=== PATIENT | male | born 1970 | race Caucasian/White ===

== ENCOUNTER 2017-11-05 12:46 | Emergency (ER) | payer OTHER, MEDICARE ==
[2017-11-05 13:08] VITALS: BP 138/80; PULSE 98; RESP 18; TEMP 97.9
--- NOTE | 2017-11-05 13:42 | ED ---
Upper Extremity HPI - General Chief Complaint: Extremity Injury, Upper Stated Complaint: LEFT SHOULDER INJURY Time Seen by Provider: 11/05/17 12:54 Source: patient, RN notes reviewed, old records reviewed Mode of arrival: ambulatory Limitations: no limitations - History of Present Illness Initial Comments: Patient is a 46-year-old male presents emergency Department a chief complaint of left shoulder pain. It's worse with range of motion. It started 5-6 days ago. He states that it occurred after he was doing heavy yard work and raking. Patient reports that he's noticed that his arm seems to be somewhat swollen. His pain is worse with any range of motion of the shoulder. Denies any wrist hand or elbow pain. He has a history of arthritis.Patient denies any recent fever, chills, shortness of breath, chest pain, back pain, abdominal pain, nausea vomiting, numbness or tingling, dysuria or hematuria, constipation or diarrhea, headaches or visual changes, or any other current symptoms - Related Data Home Medications Medication Instructions Recorded Confirmed clonazePAM [KlonoPIN] 1 mg PO BID 09/19/15 09/19/15 Aspirin 1 tab PO DAILY 11/05/17 11/05/17 Atorvastatin [Lipitor] 20 mg PO DAILY 11/05/17 11/05/17 Lisinopril-Hctz 10-12.5 mg 1 tab PO DAILY 11/05/17 11/05/17 [Zestoretic 10-12.5] Pantoprazole Sodium [Protonix] 40 mg PO DAILY 11/05/17 11/05/17 Previous Rx's Medication Instructions Recorded Ibuprofen [Motrin] 600 mg PO Q6HR PRN #15 tab 11/05/17 traMADol HCL [Ultram] 50 mg PO Q6HR PRN 3 Days #12 tab 11/05/17 Allergies Allergy/AdvReac Type Severity Reaction Status Date / Time Penicillins Allergy Rash/Hives Verified 11/05/17 13:07 Review of Systems ROS Statement: Those systems with pertinent positive or pertinent negative responses have been documented in the HPI. ROS Other: All systems not noted in ROS Statement are negative. Past Medical History Past Medical History: GERD/Reflux, Hypertension Additional Past Medical History / Comment(s): diverticulitis, ulcerative colitis History of Any Multi-Drug Resistant Organisms: None Reported Past Surgical History: Hernia Repair Additional Past Surgical History / Comment(s): rhinoplasty, colostomy Past Psychological History: PTSD Smoking Status: Current every day smoker Past Alcohol Use History: None Reported - Past Family History Mother Family Medical History: Vascular Disorder General Exam - General Exam Comments Initial Comments: 46-year-old male. Alert. No acute distress. Limitations: no limitations General appearance: alert, in no apparent distress Head exam: Present: atraumatic, normocephalic, normal inspection Eye exam: Present: normal appearance, PERRL, EOMI. Absent: scleral icterus, conjunctival injection, periorbital swelling ENT exam: Present: normal exam, mucous membranes moist Neck exam: Present: normal inspection. Absent: tenderness, meningismus, lymphadenopathy Respiratory exam: Present: normal lung sounds bilaterally. Absent: respiratory distress, wheezes, rales, rhonchi, stridor Cardiovascular Exam: Present: regular rate, normal rhythm, normal heart sounds. Absent: systolic murmur, diastolic murmur, rubs, gallop, clicks Left Shoulder Exam: Present: tenderness (Over anterior aspect of the shoulder.), swelling. Absent: normal inspection, full ROM, laceration, ecchymosis, deformity, crepitus, dislocation Upper Arm exam: Present: normal inspection, full ROM Elbow exam: Present: normal inspection, full ROM Forearm Wrist exam: Present: normal inspection, full ROM Back exam: Present: normal inspection Neurological exam: Present: alert, oriented X3, CN II-XII intact Psychiatric exam: Present: normal affect, normal mood Course Vital Signs 11/05/17 13:05 Temperature 97.9 F Pulse Rate 98 Respiratory 18 Rate Blood Pressure 138/80 O2 Sat by Pulse 97 Oximetry Medical Decision Making - Medical Decision Making Patient is a 46-year-old male presents emergency Department a chief complaint of left shoulder pain. It's worse with range of motion. It started 5-6 days ago. He states that it occurred after he was doing heavy yard work and raking. Patient reports that he's noticed that his arm seems to be somewhat swollen. Discussed that patient's symptoms are likely related to rotator cuff injury. He does have pain with range of motion of the shoulder. Limited abduction. Patient x-rays show evidence of arthritis. No acute fracture. Patient reported these results. Will be placed in a sling. Discussed possibility for shoulder syndrome and to practice range of motion. Will be discharged with anti -inflammatory medicine and pain medication. We'll be following up with orthopedic. - Radiology Data Radiology results: report reviewed No acute fracture dislocation of the left shoulder. Mild left acromioclavicular arthropathy. Disposition Clinical Impression: Left shoulder tendinitis Disposition: HOME SELF-CARE Condition: Good Instructions: Rotator Cuff Injury (ED) Additional Instructions: Patient advised to follow-up with strategic sourcing specialist. Return to the emergency department if any alarming signs or symptoms occur. Prescriptions: Ibuprofen [Motrin] 600 mg PO Q6HR PRN #15 tab PRN Reason: Pain traMADol HCL [Ultram] 50 mg PO Q6HR PRN 3 Days #12 tab PRN Reason: Pain Is patient prescribed a controlled substance at d/c from ED?: No If prescribed controlled substance>3 days was MAPS reviewed?: No When asked, does pt state using other controlled substances?: No Referrals: Joni Davis MD [Primary Care Provider] - 1-2 days Chris Menendez DO [Doctor of Osteopathic Medicine] - 1-2 days Time of Disposition: 14:17
--- NOTE | 2017-11-05 14:05 | XR ---
EXAMINATION TYPE: XR shoulder complete LT DATE OF EXAM: 11/05/2017 CLINICAL HISTORY: Left shoulder pain and swelling without known injury TECHNIQUE: Three views of the left shoulder are obtained. COMPARISON: None. FINDINGS: There is no acute fracture/dislocation evident in the left shoulder. There is mild left ac romioclavicular arthropathy demonstrated as small marginal osteophytes. The visualized ribs are inta ct and unremarkable. IMPRESSION: There is no acute fracture or dislocation in the left shoulder. Mild left acromio clavic ular arthropathy.
== END 2017-11-05 14:34 | disposition home or self-care (01) ==
LOC: EC 12:46
DX: M77.9 Enthesopathy, unspecified (principal); M19.90 Unspecified osteoarthritis, unspecified site; K21.9 Gastro-esophageal reflux disease without esophagitis; I10 Essential (primary) hypertension; F43.10 Post-traumatic stress disorder, unspecified; F17.200 Nicotine dependence, unspecified, uncomplicated; Z79.82 Long term (current) use of aspirin; Z79.899 Other long term (current) drug therapy; Z88.0 Allergy status to penicillin; X50.9XXA Other and unspecified overexertion or strenuous movements or postures, initial encounter; Y93.H1 Activity, digging, shoveling and raking
CPT/HCPCS: 99284

== ENCOUNTER 2018-07-11 00:07 | Inpatient (IN) | payer MEDICARE, OTHER ==
[2018-07-11] MEDS ORDERED: HYDROmorphone 1 MG/ML 1 ML SYRINGE IVP STA (00:38)
[2018-07-11] MEDS ORDERED: SODIUM CHLORIDE 0.9% 1,000 ML IV STA (00:38)
[2018-07-11] MEDS ORDERED: ONDANSETRON 4 MG/2 ML VIAL IVP STA (00:38)
--- NOTE | 2018-07-11 00:44 | ED ---
Abdominal Pain HPI - General Chief Complaint: Abdominal Pain Stated Complaint: Abdominal Pain Time Seen by Provider: 07/11/18 00:14 Source: patient Mode of arrival: ambulatory Limitations: no limitations - History of Present Illness Initial Comments: 47-year-old male patient presents to the emergency department today for evaluation of midepigastric abdominal pain and suprapubic abdominal pain. Patient states that the pain started last evening. States it is quite severe. Patient states the pain waxes and wanes. Patient states he has been nauseated but has not vomited. States he had a very small bowel movement this morning but no other bowel movements today. States he has been chilled but denies any fevers. He denies any radiation of the pain into his back. He does have history of small bowel obstruction as well as diverticulitis. Patient has had a history of colostomy with reversal and cholecystectomy. Patient's surgeon is Dr. Zapata at [facility]. Denies any difficulty with urination. Patient denies any recent rash, shortness breath, chest pain, numbness, tingling , dizziness, weakness, hematuria, dysuria, urinary urgency, urinary frequency, headache, visual changes, or any other complaints. - Related Data Home Medications Medication Instructions Recorded Confirmed clonazePAM [KlonoPIN] 1 mg PO BID 09/19/15 09/19/15 Aspirin 1 tab PO DAILY 11/05/17 11/05/17 Atorvastatin [Lipitor] 20 mg PO DAILY 11/05/17 11/05/17 Lisinopril-Hctz 10-12.5 mg 1 tab PO DAILY 11/05/17 11/05/17 [Zestoretic 10-12.5] Pantoprazole Sodium [Protonix] 40 mg PO DAILY 11/05/17 11/05/17 Previous Rx's Medication Instructions Recorded Ibuprofen [Motrin] 600 mg PO Q6HR PRN #15 tab 11/05/17 traMADol HCL [Ultram] 50 mg PO Q6HR PRN 3 Days #12 tab 11/05/17 Allergies Allergy/AdvReac Type Severity Reaction Status Date / Time Penicillins Allergy Rash/Hives Verified 07/11/18 00:13 Review of Systems ROS Statement: Those systems with pertinent positive or pertinent negative responses have been documented in the HPI. ROS Other: All systems not noted in ROS Statement are negative. Past Medical History Past Medical History: GERD/Reflux, Hypertension Additional Past Medical History / Comment(s): diverticulitis, ulcerative colitis History of Any Multi-Drug Resistant Organisms: None Reported Past Surgical History: Bowel Resection, Hernia Repair Additional Past Surgical History / Comment(s): rhinoplasty, colostomy Past Psychological History: PTSD Smoking Status: Former smoker Past Alcohol Use History: None Reported Past Drug Use History: None Reported - Past Family History Mother Family Medical History: Vascular Disorder General Exam Limitations: no limitations General appearance: alert, in no apparent distress, other (This is a well- developed, well-nourished adult male patient in mild distress related to pain. Vital signs upon presentation are temperature 98.6F, pulse 101, respirations 22 , blood pressure 135/85, pulse ox 98% on room air.) Eye exam: Present: normal appearance, PERRL, EOMI. Absent: scleral icterus, conjunctival injection, periorbital swelling ENT exam: Present: normal exam, normal oropharynx, mucous membranes moist Respiratory exam: Present: normal lung sounds bilaterally. Absent: respiratory distress, wheezes, rales, rhonchi, stridor Cardiovascular Exam: Present: regular rate, normal rhythm, normal heart sounds. Absent: systolic murmur, diastolic murmur, rubs, gallop, clicks GI/Abdominal exam: Present: soft, tenderness (Suprapubic, left lower quadrant tenderness. Midepigastric tenderness.), normal bowel sounds. Absent: distended , guarding, rebound, rigid Neurological exam: Present: alert, oriented X3, CN II-XII intact Psychiatric exam: Present: normal affect, normal mood Skin exam: Present: warm, dry, intact, normal color. Absent: rash Course Vital Signs 07/11/18 07/11/18 00:09 01:37 Temperature 98.6 F Pulse Rate 101 H 69 Respiratory 22 16 Rate Blood Pressure 135/85 126/82 O2 Sat by Pulse 98 99 Oximetry Medical Decision Making - Medical Decision Making 47-year-old male patient presents the emergency department today for evaluation of midepigastric and superficial abdominal pain. Physical examination did reveal abdominal distention and tenderness especially over the midepigastric region, suprapubic region, and left lower quadrant. Labs reviewed and did reveal elevated white blood cell count of 14.2, neutrophil count at 11.5. CT abdomen and pelvis was obtained and did show a distal small bowel obstruction. We will insert NG tube. Pain management will be provided. We'll consult Dr. Rock. - Lab Data Result diagrams: 07/11/18 00:31 07/11/18 00:31 Lab Results 07/11/18 07/11/18 07/11/18 Range/Units 00:31 00:31 00:31 WBC 14.2 H (3.8-10.6) k/uL RBC 5.26 (4.30-5.90) m/uL Hgb 15.4 (13.0-17.5) gm/dL Hct 46.7 (39.0-53.0) % MCV 88.8 (80.0-100.0) fL MCH 29.3 (25.0-35.0) pg MCHC 33.0 (31.0-37.0) g/dL RDW 13.3 (11.5-15.5) % Plt Count 324 (150-450) k/uL Neutrophils % 81 % Lymphocytes % 13 % Monocytes % 3 % Eosinophils % 1 % Basophils % 1 % Neutrophils # 11.5 H (1.3-7.7) k/uL Lymphocytes # 1.8 (1.0-4.8) k/uL Monocytes # 0.4 (0-1.0) k/uL Eosinophils # 0.2 (0-0.7) k/uL Basophils # 0.1 (0-0.2) k/uL Sodium 137 (137-145) mmol/L Potassium 4.3 (3.5-5.1) mmol/L Chloride 104 (98-107) mmol/L Carbon Dioxide 22 (22-30) mmol/L Anion Gap 11 mmol/L BUN 13 (9-20) mg/dL Creatinine 0.92 (0.66-1.25) mg/dL Est GFR (CKD-EPI)AfAm >90 (>60 ml/min/1.73 sqM) Est GFR (CKD-EPI)NonAf >90 (>60 ml/min/1.73 sqM) Glucose 117 H (74-99) mg/dL Plasma Lactic Acid [place] 1.8 (0.7-2.0) mmol/L Calcium 10.2 (8.4-10.2) mg/dL Total Bilirubin 0.8 (0.2-1.3) mg/dL AST 31 (17-59) U/L ALT 46 (21-72) U/L Alkaline Phosphatase 57 (38-126) U/L Total Protein 8.0 (6.3-8.2) g/dL Albumin 5.1 H (3.5-5.0) g/dL Amylase 67 (30-110) U/L Lipase 129 (23-300) U/L Urine Color Urine Appearance (Clear) Urine pH (5.0-8.0) Ur Specific [place] (1.001-1.035) Urine Protein (Negative) Urine Glucose (UA) (Negative) Urine Ketones (Negative) Urine Blood (Negative) Urine Nitrite (Negative) Urine Bilirubin (Negative) Urine Urobilinogen (<2.0) mg/dL Ur Leukocyte Esterase (Negative) 07/11/18 Range/Units 01:32 WBC (3.8-10.6) k/uL RBC (4.30-5.90) m/uL Hgb (13.0-17.5) gm/dL Hct (39.0-53.0) % MCV (80.0-100.0) fL MCH (25.0-35.0) pg MCHC (31.0-37.0) g/dL RDW (11.5-15.5) % Plt Count (150-450) k/uL Neutrophils % % Lymphocytes % % Monocytes % % Eosinophils % % Basophils % % Neutrophils # (1.3-7.7) k/uL Lymphocytes # (1.0-4.8) k/uL Monocytes # (0-1.0) k/uL Eosinophils # (0-0.7) k/uL Basophils # (0-0.2) k/uL Sodium (137-145) mmol/L Potassium (3.5-5.1) mmol/L Chloride (98-107) mmol/L Carbon Dioxide (22-30) mmol/L Anion Gap mmol/L BUN (9-20) mg/dL Creatinine (0.66-1.25) mg/dL Est GFR (CKD-EPI)AfAm (>60 ml/min/1.73 sqM) Est GFR (CKD-EPI)NonAf (>60 ml/min/1.73 sqM) Glucose (74-99) mg/dL Plasma Lactic Acid [place] (0.7-2.0) mmol/L Calcium (8.4-10.2) mg/dL Total Bilirubin (0.2-1.3) mg/dL AST (17-59) U/L ALT (21-72) U/L Alkaline Phosphatase (38-126) U/L Total Protein (6.3-8.2) g/dL Albumin (3.5-5.0) g/dL Amylase (30-110) U/L Lipase (23-300) U/L Urine Color Light Yellow Urine Appearance Clear (Clear) Urine pH 8.0 (5.0-8.0) Ur Specific [place] 1.012 (1.001-1.035) Urine Protein Negative (Negative) Urine Glucose (UA) Negative (Negative) Urine Ketones Negative (Negative) Urine Blood Negative (Negative) Urine Nitrite Negative (Negative) Urine Bilirubin Negative (Negative) Urine Urobilinogen <2.0 (<2.0) mg/dL Ur Leukocyte Esterase Negative (Negative) - Radiology Data Radiology results: report reviewed CT abdomen and pelvis with contrast was obtained. Report was reviewed in its entirety. Impression by Dr. Porter shows evidence of a distal mechanical small bowel obstruction. This is at the site of the ileum and a stenosis. This is a change compared to old CT. Disposition Clinical Impression: Small bowel obstruction Disposition: ADMITTED IP TO THIS [facility] Condition: Serious Referrals: Joni Davis MD [Primary Care Provider] - 1-2 days Decision to Admit Reason: Admit from EC Decision Date: 07/11/18 Decision Time: 02:22
[2018-07-11 00:53] LABS: Basophils # (A) 0.1 k/uL (0-0.2); Basophils % (A) 1 %; Eosinophils # (A) 0.2 k/uL (0-0.7); Eosinophils % (A) 1 %; HCT 46.7 % (39.0-53.0); HGB 15.4 gm/dL (13.0-17.5); Lymphocytes # (A) 1.8 k/uL (1.0-4.8); Lymphocytes % (A) 13 %; MCH 29.3 pg (25.0-35.0); MCV 88.8 fL (80.0-100.0); Mean Platelet Volume 6.6; Monocytes # (A) 0.4 k/uL (0-1.0); Monocytes % (A) 3 %; Neutrophils # (A) 11.5 k/uL (1.3-7.7); Neutrophils % (A) 81 %; Platelet Count 324 k/uL (150-450); RBC 5.26 m/uL (4.30-5.90); RDW 13.3 % (11.5-15.5); WBC 14.2 k/uL (3.8-10.6)
[2018-07-11 01:03] LABS: ALT 46 U/L (21-72); AST 31 U/L (17-59); Albumin 5.1 g/dL (3.5-5.0); Alkaline Phosphatase 57 U/L (38-126); Amylase 67 U/L (30-110); Anion Gap 11 mmol/L; Blood Urea Nitrogen 13 mg/dL (9-20); Calcium 10.2 mg/dL (8.4-10.2); Carbon Dioxide 22 mmol/L (22-30); Chloride 104 mmol/L (98-107); Glucose 117 mg/dL (74-99); Lipase 129 U/L (23-300); Potassium 4.3 mmol/L (3.5-5.1); Sodium 137 mmol/L (137-145); Total Bilirubin 0.8 mg/dL (0.2-1.3)
[2018-07-11 01:48] LABS: Appearance,Urine Clear (Clear); Bilirubin,Urine Negative (Negative); Blood,Urine Negative (Negative); Color,Urine Light Yellow; Glucose,Urine (UA) Negative (Negative); Ketones,Urine Negative (Negative); Leukocyte Esterase,Urine Negative (Negative); Nitrite,Urine Negative (Negative); Protein,Urine Negative (Negative); Specific Gravity,Urine 1.012 (1.001-1.035); Urobilinogen,Urine <2.0 mg/dL (<2.0)
[2018-07-11] MEDS ORDERED: HYDROmorphone 2 MG/ML 1 ML SYRINGE IVP STA (01:49)
--- NOTE | 2018-07-11 01:52 | CT ---
EXAMINATION TYPE: CT abdomen pelvis w con DATE OF EXAM: 07/11/2018 COMPARISON: 09/20/2015 HISTORY: lower abdominal pain CT DLP: 1666.1 mGycm Automated exposure control for dose reduction was used. TECHNIQUE: Helical acquisition of images was performed from the lung bases through the pelvis. CONTRAST: Performed without Oral Contrast and with IV Contrast, patient injected with 100 mL of Isovue 300. FINDINGS: Lung bases are clear. There is no pleural effusion. Heart size is normal. Stomach appears normal. Ginna er spleen pancreas appear normal. There are clips from cholecystectomy. Bile ducts are not dilated. T here is no adrenal mass. There is 3.8 cm cortical cyst lateral right kidney. There is no hydronephros is. There is 1.5 cm cortical cyst medial lower pole right kidney. There is no retroperitoneal adenopa thy. Ureters are not dilated. Bladder distends smoothly. There is no free fluid in the pelvis. There are some mildly distended fluid-filled loops of small bowel in the mid and lower abdomen. There are s urgical clips in the terminal ileum region. There is a transition point of the diameter. The ileum me asures 4.3 cm proximal to the narrowing. There are surgical clips in the rectosigmoid colon also. The re is no mesenteric edema. There is no ascites. There is no sign of free air. There are clips in the anterior abdomen consistent with hernia surgery. There is subcutaneous edema over the right anterior abdomen that could be injection sites. The lumbar vertebra have normal spacing and alignment. Bony pelvis is intact. IMPRESSION: THERE IS EVIDENCE OF A DISTAL MECHANICAL SMALL BOWEL OBSTRUCTION. THIS IS AT THE SITE OF ILEUM ANASTO MOSIS. THIS IS A CHANGE COMPARED TO OLD CT SCAN.
[2018-07-11] MEDS ORDERED: LIDOCAINE URO-JET JELLY 2% 5 ML KIT URETHRAL STA (02:14)
[2018-07-11] MEDS ORDERED: LORazepam 2 MG/ML INJ IV STA (02:14)
[2018-07-11] MEDS ORDERED: NALOXONE 0.4 MG/ML 1 ML VIAL IV PRN (02:16)
--- NOTE | 2018-07-11 03:28 | XR ---
EXAMINATION TYPE: XR chest 1V portable DATE OF EXAM: 07/11/2018 COMPARISON: NONE HISTORY: Check tube placement TECHNIQUE: Single frontal view of the chest is obtained. FINDINGS: Heart and mediastinum are normal. Lungs are clear. Costophrenic angles are clear. There is nasogastric tube with the tip in the lateral aspect of the gastric fundus. There is 2 cm calcific ar ea over the left lower lung field that could be a granuloma calcified pleural plaque. IMPRESSION: No active cardiopulmonary disease. NG tube is in good position.
[2018-07-11 03:44] VITALS: BMI 37.4
[2018-07-11] MEDS: SODIUM CHLORIDE 0.9% 1,000 ML IV SCH ×2 (03:50→15:00)
[2018-07-11] MEDS: HYDROmorphone 0.5 MG/0.5 ML SYRINGE IVP PRN ×4 (05:07→19:50)
[2018-07-11] MEDS: ONDANSETRON 4 MG/2 ML VIAL IVP PRN ×2 (08:32→21:13)
[2018-07-11] MEDS ORDERED: ACETAMINOPHEN IV (For NPO) 1,000 MG in EMPTY BAG 1 BAG IVPB PRN (09:14)
[2018-07-11] MEDS: clonazePAM 1 MG TAB PO SCH ×2 (14:58→21:58)
--- NOTE | 2018-07-11 15:23 | P.GSCN ---
History of Present Illness Consult date: 07/11/18 Reason for Consult: Small bowel obstruction History of present illness: Patient apparently just recently moved back to the area. He has a fairly extensive medical history. He underwent a sigmoid resection he believes for diverticulitis including a colostomy and subsequent reversal. He had a cholecystectomy. CAT scan also shows a small bowel resection in the region of the terminal ileum. Most recently the patient underwent a large complex repair of an abdominal wall hernia at [facility]. Patient states he has episodes of intermittent crampy abdominal pain and bloating and nausea. Some history of chronic constipation as well. He says that he has gone to the hospital on multiple occasions. Usually he is told he is constipated. He takes stool softeners with some relief. These episodes occur almost monthly. No history of inflammatory bowel disease. Denies rectal bleeding or melena. Came to the hospital with pain starting 2 days ago. He was not vomiting. CAT scan was performed which showed evidence of partial small bowel obstruction. CAT scan reviewed by myself and I suspect the partial obstruction is at the site of the small bowel anastomosis at the terminal ileum. Luminal diameter of approximately 10 mm was measured. Patient states shortly after arrival he had multiple small bowel movements. He had another bowel movement today. His nasogastric tube presently is only partially in. Apparently fallen out and was replaced. Review of Systems The patient denies any acute changes in vision or hearing, no dysphagia or odynophagia, no chest pain or shortness of breath, no dysuria or hematuria, no headache, no runny nose, no rectal bleeding or melena, no unexplained weight loss Past Medical History Past Medical History: GERD/Reflux, Hypertension Additional Past Medical History / Comment(s): diverticulitis, ulcerative colitis ,sleep apnea CPAP, History of Any Multi-Drug Resistant Organisms: None Reported Past Surgical History: Bowel Resection, Hernia Repair Additional Past Surgical History / Comment(s): rhinoplasty, colostomy, colostomy reversal. Past Anesthesia/Blood Transfusion Reactions: Postoperative Nausea & Vomiting ( PONV) Past Psychological History: PTSD Additional Psychological History / Comment(s): agoraphobia Smoking Status: Former smoker Past Alcohol Use History: None Reported Past Drug Use History: None Reported Additional Drug Use History / Comment(s): States he smokes marijuana BID. - Past Family History Mother Family Medical History: Vascular Disorder Medications and Allergies Home Medications Medication Instructions Recorded Confirmed Type clonazePAM [KlonoPIN] 1 mg PO BID 09/19/15 07/11/18 History Aspirin 1 tab PO DAILY 11/05/17 07/11/18 History Atorvastatin [Lipitor] 20 mg PO DAILY 11/05/17 07/11/18 History Lisinopril-Hctz 10-12.5 mg 1 tab PO DAILY 11/05/17 07/11/18 History [Zestoretic 10-12.5] Pantoprazole Sodium [Protonix] 40 mg PO DAILY 11/05/17 07/11/18 History traMADol HCL [Ultram] 50 mg PO Q6HR PRN 3 Days #12 tab 11/05/17 07/11/18 Rx Ergocalciferol (Vitamin D2) 50,000 unit PO WE 07/11/18 07/11/18 History [Drisdol] Allergies Allergy/AdvReac Type Severity Reaction Status Date / Time Penicillins Allergy Rash/Hives Verified 07/11/18 08:04 Surgical - Exam Vital Signs Temp Pulse Resp BP Pulse Ox 98.6 F 101 H 22 135/85 98 07/11/18 00:09 07/11/18 00:09 07/11/18 00:09 07/11/18 00:09 07/11/18 00:09 Physical exam: General: Well-developed, well-nourished HEENT: Normocephalic, sclerae nonicteric, nasogastric tube present although appears to be in the proximal esophagus based on how much is outside Abdomen: Mild distention, mild diffuse tenderness, previous scars noted Extremities: No edema Neuro: Alert and oriented Results - Labs 07/11/18 00:31 07/11/18 00:31 Abnormal Lab Results - Last 24 Hours (Table) 07/11/18 07/11/18 Range/Units 00:31 00:31 WBC 14.2 H (3.8-10.6) k/uL Neutrophils # 11.5 H (1.3-7.7) k/uL Glucose 117 H (74-99) mg/dL Albumin 5.1 H (3.5-5.0) g/dL Diabetes panel 07/11/18 Range/Units 00:31 Sodium 137 (137-145) mmol/L Potassium 4.3 (3.5-5.1) mmol/L Chloride 104 (98-107) mmol/L Carbon Dioxide 22 (22-30) mmol/L BUN 13 (9-20) mg/dL Creatinine 0.92 (0.66-1.25) mg/dL Glucose 117 H (74-99) mg/dL Calcium 10.2 (8.4-10.2) mg/dL AST 31 (17-59) U/L ALT 46 (21-72) U/L Alkaline Phosphatase 57 (38-126) U/L Total Protein 8.0 (6.3-8.2) g/dL Albumin 5.1 H (3.5-5.0) g/dL Calcium panel 07/11/18 Range/Units 00:31 Calcium 10.2 (8.4-10.2) mg/dL Albumin 5.1 H (3.5-5.0) g/dL Pituitary panel 07/11/18 Range/Units 00:31 Sodium 137 (137-145) mmol/L Potassium 4.3 (3.5-5.1) mmol/L Chloride 104 (98-107) mmol/L Carbon Dioxide 22 (22-30) mmol/L BUN 13 (9-20) mg/dL Creatinine 0.92 (0.66-1.25) mg/dL Glucose 117 H (74-99) mg/dL Calcium 10.2 (8.4-10.2) mg/dL Adrenal panel 07/11/18 Range/Units 00:31 Sodium 137 (137-145) mmol/L Potassium 4.3 (3.5-5.1) mmol/L Chloride 104 (98-107) mmol/L Carbon Dioxide 22 (22-30) mmol/L BUN 13 (9-20) mg/dL Creatinine 0.92 (0.66-1.25) mg/dL Glucose 117 H (74-99) mg/dL Calcium 10.2 (8.4-10.2) mg/dL Total Bilirubin 0.8 (0.2-1.3) mg/dL AST 31 (17-59) U/L ALT 46 (21-72) U/L Alkaline Phosphatase 57 (38-126) U/L Total Protein 8.0 (6.3-8.2) g/dL Albumin 5.1 H (3.5-5.0) g/dL Assessment and Plan (1) Small bowel obstruction Narrative/Plan: Suspect intermittent small bowel obstruction related to stricture at anastomosis site. The patient I discussed how certain foods practically fibrous foods with skins could precipitate such a episode. Patient admits that he was eating a large volume of apples with their skins on recently. The patient's nasogastric tube currently is barely in. Will remove at this time. Keep nothing by mouth. Repeat films tomorrow. Repeat CBC tomorrow. We'll follow with you. Current Visit: Yes Status: Acute Code(s): K56.609 - UNSP INTESTNL OBST, UNSP TO PARTIAL VERSUS COMPLETE OBST SNOMED Code(s): 549658992
--- NOTE | 2018-07-11 16:30 | HP ---
HISTORY AND PHYSICAL DATE OF ADMISSION: 07/11/2018 DATE OF SERVICE: 07/11/2018 PRESENTING COMPLAINT: Abdominal pain. HISTORY OF PRESENTING COMPLAINT: This is a pleasant 47-year-old patient of Dr. Davis out of [place]. Chronic stable medical conditions include GERD, hypertension, obstructive sleep apnea, uses CPAP machine, and PTSD. Patient 5 years ago had a colostomy for diverticulitis and that was reversed. Patient apparently has had a few episodes of abdominal obstruction. The patient presented with 1-1/2 days of increasing central abdominal pain localized there. No radiation. Associated with severe nausea. Had some chills. No vomiting. No fever. Patient actually did have a bowel movement today. In the ER patient had a CT scan that did confirm a distal small-bowel obstruction in the area of the ileum where there is an anastomosis. NG tube was placed and some fluid was aspirated. Patient's abdominal pain is better since then. Dr. Rock from General Surgery saw the patient this afternoon. Patient's abdominal distention actually has gone down. REVIEW OF SYSTEMS: CONSTITUTIONAL: Tired. HEENT: None. RESPIRATORY: None. CARDIOVASCULAR: None. GASTROINTESTINAL: As above. GENITOURINARY: None. MUSCULOSKELETAL: None. DERMATOLOGICAL: None. HEMATOLOGICAL: None. LYMPHATICS: None. PSYCHIATRY: Anxiety. NEUROLOGICAL: None. PAST MEDICAL HISTORY: 1. GERD. 2. Hypertension. 3. Obstructive sleep apnea. 4. PTSD. 5. Agoraphobia. 6. Diverticulitis. PAST SURGICAL HISTORY: 1. Bowel resection. 2. Hernia repair. 3. Rhinoplasty. 4. Colostomy that was reversed. PSYCH HISTORY: PTSD, agoraphobia. SOCIAL HISTORY: Patient smoked a pack a day for 35 years, stopped 4 months ago. No alcohol. . The patient is on Disability. FAMILY HISTORY: Vascular disorder. HOME MEDICATIONS: 1. Ultram 50 mg q.6 p.r.n. 2. Klonopin 1 mg p.o. b.i.d. 3. Protonix 40 mg a day. 4. Zestoretic 04/04.5 one tablet p.o. daily. 5. Drisdol 50,000 units on Saturday. 6. Lipitor 20 mg p.o. daily. 7. Aspirin 1 tablet p.o. daily. ALLERGIES: PENICILLIN. PHYSICAL EXAMINATION: VITAL SIGNS ON PRESENTATION: Temperature 98.6, pulse 101, respiration 22, blood pressure 135/85, pulse ox 98% on room air. GENERAL APPEARANCE: Well built; BMI 37.4. Sitting up, anxious-appearing. EYES: Pupils equal. Conjunctivae normal. HEENT: External appearance of nose and ears normal. Oral cavity dry. NG tube in place. NECK: JVD not raised. Mass not palpable. RESPIRATORY: Effort normal. LUNGS: Decreased breath sounds. CARDIOVASCULAR: First and second sounds normal. No edema. ABDOMEN: Minimal tenderness. Slight distention. Liver and spleen not palpable. Bowel sounds are hyperactive. No guarding or rigidity. LYMPHATIC: No lymph node palpable in neck or axillae. PSYCHIATRY: Alert and oriented x3. Mood and affect slightly anxious-appearing. NEUROLOGICAL: Pupils equal. Cranial nerves grossly intact. Power and sensation grossly intact. INVESTIGATIONS: White count 14.2, hemoglobin 15.4, potassium 4.3. UA negative. Chest x-ray film personally reviewed by me shows lung bowers to be clear. CT scan of the abdomen shows obstruction at the level of the distal ileum at prior anastomotic site. ASSESSMENT: 1. Acute small-bowel obstruction, likely from adhesions in a patient with prior abdominal surgery. 2. Gastroesophageal reflux disease. 3. Essential hypertension. 4. Obstructive sleep apnea. Uses CPAP. 5. Post-traumatic stress disorder. PLAN: Patient has an NG tube in place. Will add Lovenox for DVT prophylaxis. IV fluids are there. Dr. Rock from General Surgery was consulted. Care was discussed with the patient. Questions were answered. MMODL / IJN: [id number] /
[2018-07-11] MEDS: ENOXAPARIN 40 MG/0.4 ML SYRINGE SQ SCH (16:49)
[2018-07-11] MEDS: LACTATED RINGERS 1,000 ML IV SCH (16:50)
[2018-07-11] MEDS ORDERED: clonazePAM 1 MG TAB PO SCH (21:00)
[2018-07-12] MEDS: LACTATED RINGERS 1,000 ML IV SCH ×4 (03:47→20:01)
[2018-07-12] MEDS: ONDANSETRON 4 MG/2 ML VIAL IVP PRN ×3 (04:15→19:49)
[2018-07-12] MEDS: HYDROmorphone 0.5 MG/0.5 ML SYRINGE IVP PRN ×7 (04:15→23:31)
--- NOTE | 2018-07-12 06:26 | XR ---
EXAMINATION TYPE: XR abdomen 2V , 3 VIEWS DATE OF EXAM ORDERED: 07/12/2018 HISTORY: Follow-up SBO. COMPARISON: None. FINDINGS: The lung bases are clear. Within the abdomen, the abdominal gas pattern is within normal limits. There is no evidence of obstru ction or free air. No unusual calcifications are noted. Note is made of a previous cholecystectomy. IMPRESSION: NONACUTE ABDOMINAL GAS PATTERN.
[2018-07-12] MEDS: clonazePAM 1 MG TAB PO SCH ×2 (07:03→20:02)
[2018-07-12] MEDS: ENOXAPARIN 40 MG/0.4 ML SYRINGE SQ SCH (07:05)
[2018-07-12 08:34] LABS: Basophils # (A) 0.1 k/uL (0-0.2); Basophils % (A) 1 %; Eosinophils # (A) 0.3 k/uL (0-0.7); Eosinophils % (A) 4 %; HCT 41.1 % (39.0-53.0); HGB 12.8 gm/dL (13.0-17.5); Lymphocytes # (A) 2.5 k/uL (1.0-4.8); Lymphocytes % (A) 28 %; MCH 28.7 pg (25.0-35.0); MCHC 31.2 g/dL (31.0-37.0); MCV 91.8 fL (80.0-100.0); Mean Platelet Volume 6.7; Monocytes # (A) 0.6 k/uL (0-1.0); Monocytes % (A) 6 %; Neutrophils # (A) 5.4 k/uL (1.3-7.7); Neutrophils % (A) 60 %; Platelet Count 278 k/uL (150-450); RBC 4.47 m/uL (4.30-5.90); RDW 13.3 % (11.5-15.5)
[2018-07-12 08:53] LABS: ALT 72 U/L (21-72); AST 46 U/L (17-59); Albumin 4.2 g/dL (3.5-5.0); Alkaline Phosphatase 59 U/L (38-126); Anion Gap 6 mmol/L; Blood Urea Nitrogen 17 mg/dL (9-20); Calcium 8.9 mg/dL (8.4-10.2); Carbon Dioxide 29 mmol/L (22-30); Chloride 106 mmol/L (98-107); Glucose 85 mg/dL (74-99); Potassium 4.5 mmol/L (3.5-5.1); Sodium 141 mmol/L (137-145); Total Bilirubin 1.1 mg/dL (0.2-1.3); Total Protein 6.7 g/dL (6.3-8.2)
--- NOTE | 2018-07-12 09:58 | P.PN ---
Subjective Progress Note Date: 07/12/18 Principal diagnosis: PSBO Patient states he was vomiting last night. Mild pain at times. He did have a small amount of stool. Today's x-rays appear normal. White blood cell count now normal. Objective - Vital Signs Vital signs: Vital Signs Temp 98.5 F 07/12/18 07:00 Pulse 68 07/12/18 07:00 Resp 17 07/12/18 07:00 BP 99/63 07/12/18 07:00 Pulse Ox 96 07/12/18 07:00 Intake & Output 07/11/18 07/12/18 07/12/18 18:59 06:59 18:59 Intake Total 1875 Output Total 170 Balance -170 1875 Intake: Intake, IV Titration 1875 Amount Lactated Ringers 1,000 ml 1875 @ 125 mls/hr IV .Q8H PASQUALE Rx#:[id number] Output: Gastric Drainage 170 Other: # Voids 2 2 - Exam Abdomen: Soft, mild distention, mild tenderness - Labs CBC & Chem 7: 07/12/18 07:35 07/12/18 07:35 Labs: Abnormal Lab Results - Last 24 Hours (Table) 07/12/18 Range/Units 07:35 Hgb 12.8 L (13.0-17.5) gm/dL Assessment and Plan (1) Small bowel obstruction Narrative/Plan: Continue ice chips and popsicles only. Hold nasogastric tube for now. We'll reassess in a.m. Current Visit: Yes Status: Acute Code(s): K56.609 - UNSP INTESTNL OBST, UNSP TO PARTIAL VERSUS COMPLETE OBST SNOMED Code(s): 167147195
--- NOTE | 2018-07-13 00:45 | PN ---
PROGRESS NOTE DATE OF SERVICE: 07/12/2018. INTERVAL HISTORY: This patient presented with acute small-bowel obstruction, had an NG tube that was taken out earlier today. Abdomen is softer. Repeat x-ray today did not show any further obstruction. The patient is feeling better. Started on popsicles by Surgery. REVIEW OF SYSTEMS: Done for constitutional, cardiovascular, GI, pulmonary; relevant findings as above. CURRENT MEDICATIONS: Reviewed. PHYSICAL EXAMINATION: Temperature 98.3 pulse 88, respiration 16, blood pressure 100/72, pulse ox 94 percent on room air. GENERAL APPEARANCE: Sitting up, feeling better. EYES: Pupils equal. Conjunctivae normal. NECK: JVD not raised. Mass not palpable. Respiratory effort normal. LUNGS: Decreased breath sounds. CARDIOVASCULAR: 1st and 2nd sounds. No edema. ABDOMEN: Distended, soft. Bowel sounds present. PSYCHIATRY: Alert and oriented x3. Mood and affect normal. INVESTIGATIONS: White count 9, hemoglobin 12.8, potassium 4.5. Abdominal x-ray shows no further obstruction. ASSESSMENT: 1. Acute small bowel obstruction, likely from adhesions, recurrent, responded well to NG tube which has now been taken out. Abdominal x-ray is also much improved. 2. Gastroesophageal reflux disease. 3. Essential hypertension. 4. Obstructive sleep apnea, uses CPAP. 5. Next posttraumatic stress disorder. PLAN: Diet will be advanced per Surgery. Patient is currently on popsicles. Encouraged to ambulate. Will follow. MMODL / IJN: [id number] /
[2018-07-13] MEDS: HYDROmorphone 0.5 MG/0.5 ML SYRINGE IVP PRN ×5 (03:37→21:40)
[2018-07-13] MEDS: ONDANSETRON 4 MG/2 ML VIAL IVP PRN ×3 (03:46→17:57)
[2018-07-13] MEDS: LACTATED RINGERS 1,000 ML IV SCH (05:46)
[2018-07-13] MEDS: clonazePAM 1 MG TAB PO SCH ×2 (10:56→21:40)
[2018-07-13] MEDS: ENOXAPARIN 40 MG/0.4 ML SYRINGE SQ SCH (10:56)
--- NOTE | 2018-07-13 11:40 | P.PN ---
Subjective Progress Note Date: 07/13/18 Principal diagnosis: PSBO Patient had 2 episodes of vomiting last night. He did have 3 loose stools however. He is passing flatus as well. Still having some right-sided pain. He is afebrile. Objective - Vital Signs Vital signs: Vital Signs Temp 98.5 F 07/12/18 23:36 Pulse 74 07/12/18 23:36 Resp 16 07/12/18 23:36 BP 120/76 07/12/18 23:36 Pulse Ox 98 07/12/18 23:36 Intake & Output 07/12/18 07/13/18 07/13/18 18:59 06:59 18:59 Intake Total 1500 Balance 1500 Intake: Intake, IV Titration 1500 Amount Lactated Ringers 1,000 ml 1500 @ 125 mls/hr IV .Q8H PASQUALE Rx#:[id number] Other: # Voids 2 2 - Exam Abdomen: Soft, nontender, nondistended - Labs CBC & Chem 7: 07/12/18 07:35 07/12/18 07:35 Assessment and Plan (1) Small bowel obstruction Narrative/Plan: Patient still having episodes of vomiting. May be on the basis of underlying partial small bowel obstruction. Will check small bowel series tomorrow. Current Visit: Yes Status: Acute Code(s): K56.609 - UNSP INTESTNL OBST, UNSP TO PARTIAL VERSUS COMPLETE OBST SNOMED Code(s): 622267737
--- NOTE | 2018-07-13 21:29 | PN ---
PROGRESS NOTE DATE OF SERVICE: 07/13/2018 PRESENTING COMPLAINT: Nausea. INTERVAL HISTORY: This patient presented with acute small-bowel obstruction, status post NG tube. Passed some flatus. Still having some intermittent abdominal discomfort. The patient is on clear liquids. Dr. Rock saw the patient earlier today. Planning on a small-bowel series. REVIEW OF SYSTEMS: Done for constitutional, cardiovascular, GI, pulmonary and relevant findings as above. CURRENT MEDICATIONS: Reviewed that include IV fluids. PHYSICAL EXAMINATION: VITAL SIGNS: Temperature 97.9. Pulse 96. Respiratory 18, blood pressure 147/79, pulse ox 97% on room air. GENERAL APPEARANCE: Sitting up. Comfortable. EYES: Pupils are equal. Conjunctivae normal. NECK: JVD not raised. Mass not palpable. RESPIRATORY: Effort normal. LUNGS: Decreased breath sounds. CARDIOVASCULAR: First and second sounds normal. No edema. ABDOMEN: Distended, soft. Bowel sounds are present. Liver and spleen not palpable. PSYCHIATRY: Alert and oriented x3. Mood and affect normal. INVESTIGATIONS: No blood work from today. ASSESSMENT: 1. Acute small-bowel obstruction, recurrent, with clinical improvement. Dr. Rock is planning to do a small bowel series as patient has not really had a bowel movement. 2. Gastroesophageal reflux disease. 3. Essential hypertension. 4. Obstructive sleep apnea uses CPAP. 5. Posttraumatic stress disorder. PLAN: Continue with IV fluids. Await small bowel series done tomorrow. Care was discussed with the patient and at the bedside. Follow. MMODL / IJN: [id number] /
[2018-07-13] MEDS: METOCLOPRAMIDE 5 MG/ML 2 ML VIAL IVP SCH (21:35)
[2018-07-13] MEDS: PANTOPRAZOLE 40 MG/10 ML VIAL IVP SCH (21:39)
[2018-07-13] MEDS ORDERED: ACETAMINOPHEN TAB 325 MG TAB PO PRN (23:52)
[2018-07-14] MEDS: HYDROmorphone 0.5 MG/0.5 ML SYRINGE IVP PRN ×4 (01:20→12:23)
[2018-07-14] MEDS: ONDANSETRON 4 MG/2 ML VIAL IVP PRN (03:02)
[2018-07-14] MEDS: LACTATED RINGERS 1,000 ML IV SCH ×5 (04:50→22:23)
[2018-07-14] MEDS: METOCLOPRAMIDE 5 MG/ML 2 ML VIAL IVP SCH ×5 (04:51→23:14)
[2018-07-14] MEDS: clonazePAM 1 MG TAB PO SCH ×2 (08:57→22:23)
[2018-07-14] MEDS: PANTOPRAZOLE 40 MG/10 ML VIAL IVP SCH ×2 (08:57→22:23)
[2018-07-14] MEDS: ENOXAPARIN 40 MG/0.4 ML SYRINGE SQ SCH (08:57)
--- NOTE | 2018-07-14 10:53 | FL ---
EXAMINATION TYPE: FL small bowel follow through DATE OF EXAM: 07/14/2018 CLINICAL HISTORY: Admitted with pain and small bowel obstruction 3 days earlier. TECHNIQUE: A single contrast small bowel follow through is performed utilizing barium. 13 seconds of fluoroscopic time was utilized during procedure. 11 images are saved to PACS. COMPARISON: Abdominal x-ray from [address] abdomen and pelvis from 3 days ago. FINDINGS: Consumer Sales Representative image of the abdomen shows no gross abnormality. Cholecystectomy clips are redemonst rated. Coils ventral wall hernia repair surgery are redemonstrated overlying the lower abdomen. The small bowel study shows normal transit to the colon in less than 75 minutes. There is a normal m ucosal fold pattern throughout the small bowel. There is no evidence of any stricture or filling def ect noted. The terminal ileum is spotted and appears unremarkable. There is interval improvement in dilated distal small bowel loops in the right lower quadrant and upper pelvis from CT 3 days ago. IMPRESSION: Normal small bowel follow through today consistent with resolving distal partial small bowel obstruction.
--- NOTE | 2018-07-14 13:05 | P.PN ---
Subjective Progress Note Date: 07/14/18 Principal diagnosis: PSBO Patient still complaining of intermittent vomiting. Mild right-sided pain. Today small bowel series shows no obstruction however. Objective - Vital Signs Vital signs: Vital Signs Temp 98.9 F 07/14/18 07:40 Pulse 78 07/14/18 07:40 Resp 18 07/14/18 07:40 BP 143/86 07/14/18 07:40 Pulse Ox 99 07/14/18 07:40 Intake & Output 07/13/18 07/14/18 07/14/18 18:59 06:59 18:59 Intake Total 1000 1500 Balance 1000 1500 Intake: Intake, IV Titration 1000 1500 Amount Lactated Ringers 1,000 ml 1000 1500 @ 125 mls/hr IV .Q8H PASQUALE Rx#:[id number] Other: Voiding Method Toilet Toilet # Voids 3 2 # Bowel Movements 1 3 - Exam Abdomen: Soft, mild right-sided tenderness, no rebound or guarding - Labs CBC & Chem 7: 07/12/18 07:35 07/12/18 07:35 Assessment and Plan (1) Small bowel obstruction Narrative/Plan: [place] of the patient's vomiting is continuing. Today small bowel series shows no obstruction. Right-sided pain could be on the basis of recent hernia repair. We'll check upper endoscopy tomorrow. If symptoms persist beyond that consider GI consult. Current Visit: Yes Status: Acute Code(s): K56.609 - UNSP INTESTNL OBST, UNSP TO PARTIAL VERSUS COMPLETE OBST SNOMED Code(s): 024916468
[2018-07-14] MEDS: HYDROmorphone 1 MG/ML 1 ML SYRINGE IVP PRN ×2 (17:44→21:25)
[2018-07-15] MEDS: HYDROmorphone 1 MG/ML 1 ML SYRINGE IVP PRN ×2 (00:46→05:38)
[2018-07-15] MEDS: METOCLOPRAMIDE 5 MG/ML 2 ML VIAL IVP SCH ×3 (05:37→17:37)
[2018-07-15] MEDS: LACTATED RINGERS 1,000 ML IV SCH ×2 (05:42→16:24)
[2018-07-15] MEDS ORDERED: HYDROmorphone 1 MG/ML 1 ML SYRINGE IVP PRN (06:37)
[2018-07-15] MEDS ORDERED: LIDOCAINE 1% 20 ML VIAL (10MG/ML) FOR IV START INTRADERMA PRN (06:37)
[2018-07-15] MEDS ORDERED: LACTATED RINGERS 1,000 ML IV SCH (06:45)
--- NOTE | 2018-07-15 07:12 | PN ---
PROGRESS NOTE DATE OF SERVICE: 07/14/2018 PRESENTING COMPLAINT: Tired. INTERVAL HISTORY: This patient is seen by me yesterday. Presented with acute small-bowel obstruction. Status post NG tube. Patient is feeling much better. Did have a small bowel series today, looking good. Patient is on a clear liquid diet. Did have a bowel movement. REVIEW OF SYSTEMS: Done for constitutional, cardiovascular, GI, pulmonary; relevant findings as above. CURRENT MEDICATIONS: Reviewed. PHYSICAL EXAMINATION: Temperature 98.1, pulse 79, respiration 16, blood pressure 127/79, pulse ox 96% on room air. GENERAL: Sitting up, comfortable. EYES: Pupil equal, conjunctivae are normal. NECK: JVD not raised. Mass not palpable. RESPIRATORY: Effort normal. LUNGS: Decreased breath sounds. CARDIOVASCULAR: First and second sounds are normal. No edema. ABDOMEN: Distended, soft, nontender. Liver and spleen not palpable. PSYCHIATRY: Alert and oriented x3. Mood and affect are normal. INVESTIGATIONS: No blood work from today. Small bowel x-ray shows no obstruction. ASSESSMENT: 1. Acute small-bowel obstruction, recurrent, with clinical resolution. Follow with Surgery. 2. Gastroesophageal reflux disease. 3. Essential hypertension. 4. Obstructive sleep apnea, uses CPAP. 5. Posttraumatic stress disorder. Patient is on a clear liquid diet. Diet is being advanced as per Surgery. Will follow. Dr. Rock is presenting with an EGD tomorrow. MMODL / IJN: [id number] /
[2018-07-15 07:56] VITALS: RESP 16
[2018-07-15] MEDS: ENOXAPARIN 40 MG/0.4 ML SYRINGE SQ SCH (08:04)
[2018-07-15] MEDS: clonazePAM 1 MG TAB PO SCH (08:08)
[2018-07-15] MEDS ORDERED: PROPOFOL 10 MG/ML 20 ML VIAL IV ONE (12:40)
[2018-07-15] MEDS ORDERED: MIDAZOLAM 2 MG/2 ML VIAL ONE (12:40)
[2018-07-15] MEDS ORDERED: LACTATED RINGERS 200 ML IV ONE (12:43)
[2018-07-15] MEDS ORDERED: LACTATED RINGERS 1,000 ML IV ONE (13:07)
--- NOTE | 2018-07-15 14:59 | P.PCN ---
Date of Procedure: 07/15/18 Procedure(s) Performed: Preoperative Dx: Abdominal pain, vomiting Postoperative Dx: Mild gastritis Procedure: EGD with Bx Anesthesia: Sedation Endoscopist: Dr. Rock Specimens: Antrum Endoscopic Procedure: The patient was on the endoscopy table in the left decubitus position. The Olympus gastroscope was inserted into the oropharynx and passed under direct visualization to the region of the third portion of the duodenum. From that point the scope was slowly withdrawn inspecting all surfaces carefully. There were no neoplastic inflammatory or polypoid lesions throughout the duodenum. The pylorus was widely patent. The stomach was carefully inspected. There was gastritis present. A biopsy of the antrum took place to rule out H. pylori. Retroflexion revealed a normal hiatus. The esophagus was then carefully examined. There were no neoplastic inflammatory or polypoid lesions throughout the visualized esophagus. The patient was then taken to the recovery room in stable condition per anesthesia guidelines. Recommendations: Await biopsy results. Start full liquid diet. Advance diet as tolerated.
[2018-07-15 15:55] VITALS: BP 143/90; PULSE 77; TEMP 97.8
[2018-07-15] MEDS ORDERED: PANTOPRAZOLE 40 MG/10 ML VIAL IVP SCH (21:00)
--- NOTE | 2018-07-16 09:26 | DS ---
DISCHARGE SUMMARY DATE OF ADMISSION: 07/11/2018 DATE OF DISCHARGE: 07/15/2018 FINAL DIAGNOSES: 1. Acute small-bowel obstruction, recurrent, improved. 2. Gastroesophageal reflux disease. 3. Essential hypertension. 4. Obstructive sleep apnea, uses CPAP. 5. Posttraumatic stress disorder. 6. Chronic gastritis. HOSPITAL COURSE: This patient presented with acute small-bowel obstruction. Responded well to NG tube. Patient did have a small bowel series that came back to be unremarkable. Also had the EGD that showed some gastritis. Doing much better, tolerating a diet, had a bowel movement. CONSULTATION: Dr. Rock from General Surgery. PHYSICAL EXAMINATION: Temperature 97.8, pulse 77, respirations 16, blood pressure 143/90, pulse ox 96% on room air. ABDOMEN: Soft, nontender. DISCHARGE MEDICATIONS: 1. Klonopin 1 mg b.i.d. 2. Aspirin 1 tablet p.o. daily. 3. Lipitor 20 mg p.o. daily. 4. Zestoretic 04/04.5 one tablet p.o. daily. 5. Protonix 40 mg p.o. daily. 6. Ultram 50 mg q.6 p.r.n. 7. Vitamin D2 fifty thousand units on Saturday. FOLLOWUP: Follow up with Dr. Rock on 07/30/2018. Follow up with Dr. Davis in [place] on 07/22/2018. DIET: Soft, bland. MMODL / JOYCEN: [id number] /
== END 2018-07-15 19:06 | disposition home or self-care (01) | DRG 390 ==
LOC: EC 00:07 → 4SSUR 02:36
PROVIDERS: ADMIT Hospitalist; ATTEND Hospitalist
PROC: 0DB78ZX Excision of Stomach, Pylorus, Via Natural or Artificial Opening Endoscopic, Diagnostic (ICD-10-PCS; principal; 2018-07-15 07:30)
DX: K56.51 Intestinal adhesions [bands], with partial obstruction (principal); F40.00 Agoraphobia, unspecified; F43.10 Post-traumatic stress disorder, unspecified; G47.33 Obstructive sleep apnea (adult) (pediatric); I10 Essential (primary) hypertension; K21.9 Gastro-esophageal reflux disease without esophagitis; K29.50 Unspecified chronic gastritis without bleeding; Z99.89 Dependence on other enabling machines and devices; Z79.82 Long term (current) use of aspirin; Z79.899 Other long term (current) drug therapy; Z87.891 Personal history of nicotine dependence; Z90.49 Acquired absence of other specified parts of digestive tract; Z88.0 Allergy status to penicillin
CPT/HCPCS: 36415; 43239; 71045; 74019; 74177; 74250; 80053; 81003; 82150; 83605; 83690; 85025; 88305; 96361; 96374; 96375; 96376; 99285

== ENCOUNTER → 2020-08-12 | Outpatient (CLI) | payer OTHER, MEDICARE ==
--- NOTE | 2020-08-12 16:02 | US ---
EXAMINATION TYPE: US kidneys/renal and bladder DATE OF EXAM: 08/12/2020 COMPARISON: CT 07/11/2018 CLINICAL HISTORY: N18.2 CKD STAGE 2. EXAM MEASUREMENTS: Right Kidney: Surgically absent Left Kidney: 11.2 x 6.4 x 5.6 cm Right Kidney: Surgically absent Left Kidney: No hydronephrosis. Tiny hypoechoic area visualized medially measuring 0.5 cm. Possible c yst visualized laterally measuring 0.8 x 0.7 x 1.0 cm Bladder: wnl Bilateral Jets seen: Left jet visualized There is no evidence for hydronephrosis at this point in time. No nephrolithiasis is seen. The urin purnima bladder is anechoic. Left jet are seen. IMPRESSION: 1. Small cysts left kidney
== END | disposition home or self-care (01) ==
LOC: RADUSWWP 15:22
PROVIDERS: ATTEND Family Medicine
DX: N28.1 Cyst of kidney, acquired (principal); N18.2 Chronic kidney disease, stage 2 (mild)
CPT/HCPCS: 76770